=== PATIENT | female | born 1985 | race Caucasian/White ===

== ENCOUNTER 2019-08-10 11:35 | Emergency (ER) | payer OTHER ==
[2019-08-10 11:45] VITALS: BP 123/85; PULSE 91; TEMP 98; BMI 38.7
[2019-08-10] MEDS ORDERED: ALBUTEROL SO4 2.5/IPRATROPIUM 0.5 INH SOL 3 ML VIAL.NEB. NEB ONE ×2 (13:05→13:10)
[2019-08-10] MEDS ORDERED: predniSONE 20 MG TABLET (UD) PO ONE (13:05)
[2019-08-10] MEDS ORDERED: predniSONE 20 MG TABLET (UD) ONE (13:10)
--- NOTE | 2019-08-10 13:11 | PDOC ---
History of Present Illness - General Chief Complaint: Cold Symptoms Stated Complaint: COUGHING/CONGESTED Time Seen by Provider: 08/10/19 11:59 History Source: Patient Exam Limitations: No Limitations - History of Present Illness Initial Comments: 08/10/19 13:06 Patient is a 34-year-old female who presents to the ED for incessant cough for the last 4 days. She states 4 days ago she had a slight fever but has not had one since. The cough is worse at night. She denies any sputum production. She does have a history of asthma and she states her pump has not been helping. She denies any throat pain. She does admit to some ear pain. Other than asthma she denies any past medical history. Past History - Past Medical History Allergies/Adverse Reactions: Allergies Allergy/AdvReac Type Severity Reaction Status Date / Time No Known Allergies Allergy Verified 08/10/19 11:41 Home Medications: Ambulatory Orders Albuterol Sulfate Inhaler - [Ventolin Hfa Inhaler -] 1 - 2 inh PO Q4H #1 inhaler 04/28/15 Benzonatate [Tessalon Pearls -] 100 mg PO TID PRN #21 capsule 08/10/19 Multivit-Minerals/Herbal No217 [Advaclear Capsule] 1 each PO BID 08/10/19 predniSONE [Deltasone -] 60 mg PO DAILY 4 Days #12 tablet 08/10/19 Asthma: Yes Cancer: No Cardiac Disorders: No COPD: No Diabetes: No HTN: No Liver Disease: No Seizures: No Thyroid Disease: No - Immunization History Immunization Up to Date: Yes - Psycho Social/Smoking Cessation Hx Smoking History: Never smoked Have you smoked in the past 12 months: No Hx Alcohol Use: No Drug/Substance Use Hx: No Substance Use Type: None Hx Substance Use Treatment: No Review of Systems - Review of Systems Comments:: 08/10/19 13:07 - Review of Systems Able to Perform ROS?: Yes Constitutional: No: Fever, Chills, Loss of Appetite, Night Sweats, Weakness HEENTM: No: Eye Pain, Vision changes, Throat Pain, Throat Swelling, Mouth Pain, Difficulty Swallowing, + Ear Pain Respiratory: No: Shortness of Breath, Wheezing, Sputum Production, + Cough Cardiac (ROS): No: Chest Pain, Chest Tightness, Palpitations, Irregular Heart Beat, Edema ABD/GI: No: Nausea, Vomiting, Abdominal Pain, Diarrhea : No Dysuria, No Hematuria, No Frequency, No Urgency Musculoskeletal: No: Muscle Pain, Back Pain, Joint Pain, Muscle Weakness, Neck Pain Integumentary: No: Lesions, Rash Neurological: No: Headache, Numbness, Tingling, Weakness, Speech Difficulties *Physical Exam - Vital Signs Last Vital Signs Temp Pulse Resp BP Pulse Ox 98.0 F 91 H 18 123/85 100 08/10/19 11:41 08/10/19 11:41 08/10/19 11:41 08/10/19 11:41 08/10/19 11:41 - Physical Exam 08/10/19 13:08 - Physical Exam General Appearance: Nourished, Appropriately Dressed, No Distress HEENT: EOMI, Normal Voice, No Pharyngeal Erythema, No Muffled/Hoarse voice, No Tonsillar Exudate, No Tonsillar Erythema, No Nasal Congestion, No Rhinorrhea, Hearing Grossly Normal, TMs Normal, B/l TM Bulging/effusion, No TM Dullness, No TM Erythema Neck: Supple, No Lymphadenopathy (R), No Lymphadenopathy (L), No Rigidity, No Decreased range of motion Respiratory/Chest: Lungs Clear, Normal Breath Sounds. No Respiratory Distress, No Accessory Muscle Use; dry hacking cough appreciated Cardiovascular: Regular Rhythm, Regular Rate, S1, S2 Gastrointestinal/Abdominal: Normal Bowel Sounds, Soft. Non-tender, No Guarding , No Rebound, No Rigidity Musculoskeletal: Normal Inspection. No Decreased Range of Motion Extremity: Normal Capillary Refill, Normal Inspection Integumentary: Normal Color, Dry. 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 We will discharge the patient with a prescription for prednisone and Tessalon Perles. She will start the prednisone tomorrow as she was given the first dose today. She will follow-up with her primary doctor within 1 to 2 weeks for repeat evaluation. Medical Decision Making - Medical Decision Making 08/10/19 13:09 Patient is a 34-year-old female with incessant dry cough for the last 4 days and fever x 1 four days ago. -We will give DuoNeb x1 -We will give prednisone 60 mg p.o. x1 -Chest x-ray -Will reassess Discharge - Discharge Information Problems reviewed: Yes Clinical Impression/Diagnosis: Bronchitis Condition: Stable Disposition: HOME - Additional Discharge Information Prescriptions: Benzonatate [Tessalon Pearls -] 100 mg PO TID PRN #21 capsule PRN Reason: Cough predniSONE [Deltasone -] 60 mg PO DAILY 4 Days #12 tablet - Follow up/Referral Referrals: Keyla Cary MD [Primary Care Provider] - - Patient Discharge Instructions Patient Printed Discharge Instructions: DI for Acute Bronchitis Additional Instructions: Get plenty of rest and drink plenty of fluids. Take the Tessalon Perles for cough. Take the prednisone as prescribed and start tomorrow. You can use your albuterol inhaler as needed. Follow-up with your primary doctor for repeat evaluation. - Post Discharge Activity Work/Back to School Note: Back to Work
== END 2019-08-10 14:38 | disposition home or self-care (01) ==
LOC: JERFT 11:35
PROC: 3E0F7GC Introduction of Other Therapeutic Substance into Respiratory Tract, Via Natural or Artificial Opening (ICD-10-PCS; principal; 2019-08-10)
DX: J40 Bronchitis, not specified as acute or chronic (principal)
CPT/HCPCS: 71046-TC-FY; 94640; 99282-25

== ENCOUNTER 2020-05-05 01:50 | Emergency (ER) | payer OTHER ==
--- OUTSIDE RECORDS SUMMARY | 2020-05-05 02:19 | XMS ---
:1985 Author Organization [facility] Care Team Providers Name Role Phone FELICIA Flor Unavailable Unavailable ED STAFF PHYSICIAN, STAFF Unavailable Unavailable Re-disclosure Warning The records that you are about to access may contain information from federally- assisted alcohol or drug abuse programs. If such information is present, then the following federally mandated warning applies: This information has been disclosed to you from records protected by federal confidentiality rules (42 CFR part 2). The federal rules prohibit you from making any further disclosure of this information unless further disclosure is expressly permitted by the written consent of the person to whom it pertains or as otherwise permitted by 42 CFR part 2. A general authorization for the release of medical or other information is NOT sufficient for this purpose. The Federal rules restrict any use of the information to criminally investigate or prosecute any alcohol or drug abuse patient.The records that you are about to access may contain highly sensitive health information, the redisclosure of which is protected by Article 27-F of the [facility] Public Health law. If you continue you may haveaccess to information: Regarding HIV / AIDS; Provided by facilities licensed or operated by the [facility] Office of Mental Health; or Provided by the [facility] Office for People With Developmental Disabilities. If such information is present, then the following [facility] mandated warning applies: This information has been disclosed to you from confidential records which are protected by state law. State law prohibits you from making any further disclosure of this information without the specific written consent of the person to whom it pertains, or as otherwise permitted by law. Any unauthorized further disclosure in violation of state law may result in a fine or residential sentence or both. A general authorization for the release of medical or other information is NOT sufficient authorization for further disclosure. Encounters Encounter Providers Location Date Indications Data Source(s ) Emergency Attender: FELICIA Jamison 07/10/2019 [facility] [place] KAttender: 03:28:00 PM EST [facility] STAFF ED STAFF - 07/10/2019 PHYSICIANAdmitter: 08:33:00 PM EST FELICIA Flor Patient discharged. Insurance Providers Payer name Policy type Policy ID Covered Covered republican's Policy P neftali / Coverage republican ID relationship to Rooney Inf ormation type rooney SARA [id number] SP [id number] 200 HEALTH NON CAP SARA W [id number] 01 [id number] 200 SARA W [id number] 01 [id number] 200 [place] [id number] [place] [id number] HMO MVP/HHP O [id number] 01 [id number] Problems, Conditions, and Diagnoses Code Display Name Description Problem Type Effective Dates Data Source(s) R42 Dizziness and DIZZINESS AND Diagnosis 07/10/2019 [facility] giddiness GIDDINESS 03:28:00 PM EST Medical C enter R06.00 Dyspnea, DYSPNEA, Diagnosis 07/10/2019 [facility] unspecified UNSPECIFIED 03:28:00 PM EST Medical Center R05 Cough COUGH Diagnosis 07/10/2019 [facility] 03:28:00 PM EST Medical C enter Social History Code Duration Value Status Description Data Source(s ) Smoking 07/10/2019 Denies Ever completed Denies Ever Smoked [facility] 03:45:00 PM EST Smoked Medical C enter Smoking 07/10/2019 Denies Ever completed Denies Ever Smoked [facility] 03:43:00 PM EST Smoked Medical C enter Smoking 07/10/2019 Denies Ever completed Denies Ever Smoked [facility] 03:30:00 PM EST Smoked Medical C enter Vital Signs ID Date Data Source UNK Name Value Range Interpretation Code Description Data Source(s) Body temperature 36.271405 36.219586 [facility] Respiratory rate 16 /min 16 /min [facility] Oxygen saturation 98 % 98 % [facility] in Arterial blood [facility] by Pulse oximetry Heart rate 94 /min 94 /min [facility] Body height 167.096448 167.783460 cm [facility] cm [facility] Center Diastolic blood 73 mm[Hg] 73 mm[Hg] [facility] pressure [facility] Center Systolic blood 141 mm[Hg] 141 mm[Hg] [facility] pressure [facility]
[2020-05-05 02:20] VITALS: BP 138/84; PULSE 96; TEMP 98.7; BMI 40.3
--- NOTE | 2020-05-05 02:26 | PDOC ---
Attending Attestation - Resident Resident Name: Zane Rodriguez - ED Attending Attestation I have performed the following: I have examined & evaluated the patient, The case was reviewed & discussed with the resident, I agree w/resident's findings & plan - HPI HPI: 05/05/20 04:40 Pt has a broken/ rotten maxil;bruno premolar that is causing pain Pt has no fever and no chills and she went to see a dentist who gave her 500mg amoxil BID and she felt better. However now with pain. She states that the dentist wouldn't pull the tooth wthout being paid first. She is looking for a low cost or free tooth extraction. Now here for pain relief. \No other complaints - Physicial Exam PE: 05/05/20 04:42 Agree with resident exam - Medical Decision Making 05/05/20 04:42 dental pain; cavity/rotten/broken tooth 05/05/20 04:42 Pt given a bupivicaine nerve block that was effective in easing the pain. Pt will follow at a local dental clinic later today. Stable for d/c home Discharge - Discharge Information Problems reviewed: Yes Clinical Impression/Diagnosis: Toothache Broken tooth Qualifiers: Encounter type: initial encounter Condition: Good Disposition: HOME - Follow up/Referral Referrals: Keyla Cary MD [Primary Care Provider] - - Patient Discharge Instructions Patient Printed Discharge Instructions: DI for Tooth Abscess, DI for Dental Pain Additional Instructions: You were seen in the ER for a tooth ache. You received numbing medication in your gum to treat your symptoms. After receiving this medication you reported a significant reduction in your pain. When you return home you may use tylenol and motrin/advil to control your pain. You may use these medications together to increase their effectiveness. Please follow the dosing instruction on the packaging. Please follow up with a Dentist tomorrow morning to have the tooth removed. You may visit [facility] or [facility] to seek treatment for your tooth. Please return to the ER if you experience any of the following: fever, chills, nausea, vomiting, chest pain, shortness of breath, changes in vision or hearing. - Post Discharge Activity
--- NOTE | 2020-05-05 02:27 | PDOC ---
Attending Attestation - ED Attending Attestation I have performed the following: I have examined & evaluated the patient, The case was reviewed & discussed with the resident, I agree w/resident's findings & plan Discharge - Follow up/Referral Referrals: Keyla Cary MD [Primary Care Provider] - - Patient Discharge Instructions - Post Discharge Activity
[2020-05-05] MEDS ORDERED: BUPIVACAINE HCL/PF 0.5% (5 MG/ML) 30 ML VIAL IJ ONE (02:30)
[2020-05-05] MEDS ORDERED: BUPIVACAINE HCL 50 ML ONE (02:35)
--- NOTE | 2020-05-05 03:42 | PDOC ---
History of Present Illness - General Chief Complaint: Toothache Stated Complaint: TOOTHACHE Time Seen by Provider: 05/05/20 02:27 - History of Present Illness Initial Comments: 35 year old female with no significant history presenting with tooth pain of 2 days duration. Patient reports that she broke her tooth but is unsure how. She visited a dentist today who refused to treat her without insurance. She presents with 10/10 pain that radiates across her right face and into her forehead. She otherwise denies N/V/D, fever, chill, chest pain or shortness of breath. 05/05/20 03:48 Past History - Medical History Allergies/Adverse Reactions: Allergies Allergy/AdvReac Type Severity Reaction Status Date / Time No Known Allergies Allergy Verified 05/05/20 02:15 Home Medications: Ambulatory Orders Albuterol Sulfate Inhaler - [Ventolin HFA Inhaler -] 1 - 2 inh PO Q4H #1 inhaler 04/28/15 Multivit-Minerals/Herbal No217 [Advaclear Capsule] 1 each PO BID 08/10/19 Amoxicillin - [Amoxicillin 500mg Capsule -] 500 mg PO BID #14 capsule 10/17/19 Pseudoephedrine HCl [Sudafed] 30 mg PO QID #20 tablet 10/17/19 Asthma: Yes Cancer: No Cardiac Disorders: No COPD: No Diabetes: No HTN: No Liver Disease: No Seizures: No Thyroid Disease: No - Reproductive History Is Patient Now?: No - Immunization History Immunization Up to Date: Yes - Psycho-Social/Smoking History Smoking History: Never smoked Have you smoked in the past 12 months: No - Substance Abuse Hx (Audit-C & DAST Scrn) How often the patient has a drink containing alcohol: Never Score: In Men: 4 or > Positive; In Women: 3 or > Positive: 0 Screen Result (Pos requires Nsg. Audit-10AR): Negative In the last yr the pt used illegal drug/Rx for NonMed reason: No Score: Yes response is considered Positive: 0 Screen Result (Positive result requires Nsg. DAST-10): Negative *Physical Exam - Vital Signs Last Vital Signs Temp Pulse Resp BP Pulse Ox 98.7 F 96 H 18 138/84 100 05/05/20 02:09 05/05/20 02:09 05/05/20 02:09 05/05/20 02:09 05/05/20 02:09 Discharge - Discharge Information Problems reviewed: Yes Clinical Impression/Diagnosis: Toothache Condition: Good Disposition: HOME - Admission No - Follow up/Referral Referrals: Keyla Cary MD [Primary Care Provider] - - Patient Discharge Instructions Patient Printed Discharge Instructions: DI for Tooth Abscess, DI for Dental Pain Additional Instructions: You were seen in the ER for a tooth ache. You received numbing medication in your gum to treat your symptoms. After receiving this medication you reported a significant reduction in your pain. When you return home you may use tylenol and motrin/advil to control your pain. You may use these medications together to increase their effectiveness. Please follow the dosing instruction on the packaging. Please follow up with a Dentist tomorrow morning to have the tooth removed. You may visit [facility] or [facility] to seek treatment for your tooth. Please return to the ER if you experience any of the following: fever, chills, nausea, vomiting, chest pain, shortness of breath, changes in vision or hearing. - Post Discharge Activity
== END 2020-05-05 03:57 | disposition home or self-care (01) ==
LOC: JER 01:50
DX: K08.89 Other specified disorders of teeth and supporting structures (principal)
CPT/HCPCS: 99283-25

== ENCOUNTER 2020-11-06 16:44 | Emergency (ER) | payer OTHER ==
[2020-11-06 16:53] VITALS: BP 131/81; PULSE 97; TEMP 98.5; BMI 40.3
[2020-11-06 18:20] LABS: BASO % 0.5 % (0-2.0); EOS % 6.6 % (0-4.5); HEMATOCRIT 32.5 % (32.4-45.2); HEMOGLOBIN 10.7 GM/dL (10.7-15.3); LYMPH % 27.5 % (8-40); MEAN CELL VOLUME 84.9 fl (80-96); MEAN PLT VOLUME 8.5 fl (7.5-11.1); MONO % 6.1 % (3.8-10.2); NEUT % 59.3 % (42.8-82.8); PLATELET COUNT 363 K/MM3 (134-434); RBC 3.83 M/mm3 (3.60-5.2); RDW 18.8 % (11.6-15.6); WHITE BLOOD COUNT 7.4 K/mm3 (4.0-10.0)
[2020-11-06 18:32] LABS: CHLORIDE 109 mmol/L (98-107); SODIUM 140 mmol/L (136-145)
[2020-11-06 18:34] LABS: CALCIUM 9.6 mg/dL (8.5-10.1); GLUCOSE,RANDOM 83 mg/dL (74-106)
[2020-11-06 18:35] LABS: ALBUMIN 3.8 g/dl (3.4-5.0); ANION GAP 4 MMOL/L (8-16); BLOOD UREA NITROGEN 10.6 mg/dL (7-18); CO2 27 mmol/L (21-32)
[2020-11-06 18:38] LABS: CREATININE 0.9 mg/dL (0.55-1.3); SGOT/AST 12 U/L (15-37); SGPT/ALT 17 U/L (13-61)
[2020-11-06 18:39] LABS: BILIRUBIN,TOTAL 0.4 mg/dL (0.2-1); TOT PROT 8.2 g/dl (6.4-8.2)
[2020-11-06 18:40] LABS: ALK PHOS 59 U/L (45-117)
== END 2020-11-06 19:15 | disposition home or self-care (01) ==
LOC: JER 16:44
DX: R07.9 Chest pain, unspecified (principal)
CPT/HCPCS: 36415; 71046-TC-FY; 80053; 82550; 84484; 84702; 85025; 93005; 93010; 99284-25

== ENCOUNTER 2021-02-16 00:39 | Emergency (ER) | payer OTHER ==
[2021-02-16 01:02] VITALS: TEMP 98.3; BMI 42.5
[2021-02-16 02:35] LABS: PH,URINE 5.5 (5.0-8.0); URINE APPEARANCE CLEAR; URINE BILIRUBIN NEGATIVE (NEGATIVE); URINE COLOR YELLOW; URINE GLUCOSE (UA) NEGATIVE (NEGATIVE); URINE KETONE NEGATIVE (NEGATIVE); URINE LEUK ESTERASE NEGATIVE (NEGATIVE); URINE NITRITE NEGATIVE (NEGATIVE); URINE PROTEIN NEGATIVE (NEGATIVE); URINE UROBILINOGEN 0.2 mg/dL (0.2-1.0)
[2021-02-16 03:58] LABS: BASO % 0.5 % (0-2.0); EOS % 6.3 % (0-4.5); HEMATOCRIT 32.7 % (32.4-45.2); LYMPH % 21.3 % (8-40); MCH 28.5 pg (25.7-33.7); MCHC 33.6 g/dl (32.0-36.0); MEAN PLT VOLUME 8.2 fl (7.5-11.1); MONO % 4.9 % (3.8-10.2); PLATELET COUNT 327 10^3/uL (134-434); RBC 3.84 M/mm3 (3.60-5.2); RDW 14.6 % (11.6-15.6); WHITE BLOOD COUNT 9.8 K/mm3 (4.0-10.0)
[2021-02-16 04:09] LABS: BLOOD UREA NITROGEN 8.2 mg/dL (7-18)
[2021-02-16 04:10] LABS: ALBUMIN 3.4 g/dl (3.4-5.0); MAGNESIUM 2.1 mg/dL (1.8-2.4)
[2021-02-16 04:13] LABS: CREATININE 0.9 mg/dL (0.55-1.3)
[2021-02-16 04:14] LABS: BILIRUBIN,TOTAL 0.3 mg/dL (0.2-1)
[2021-02-16 05:59] VITALS: BP 118/76; PULSE 78
== END 2021-02-16 05:59 | disposition home or self-care (01) ==
LOC: JER 00:39
DX: N83.202 Unspecified ovarian cyst, left side (principal)
CPT/HCPCS: 36415; 74177-TC; 80053; 81003; 83690; 83735; 84703; 85025; 87086; 99284-25

== ENCOUNTER 2022-03-19 08:27 | Emergency (ER) | payer OTHER ==
[2022-03-19 08:33] VITALS: RESP 17; BMI 40.3
[2022-03-19] MEDS ORDERED: ALBUTEROL SO4 0.083% IH SOL 2.5 MG/3 ML VIAL.NEB. NEB ONE ×2 (10:59→11:08)
[2022-03-19] MEDS ORDERED: ACETAMINOPHEN 325 MG TABLET (FP) PO ONE (10:59)
[2022-03-19] MEDS ORDERED: ACETAMINOPHEN 325 MG TABLET (FP) ONE (11:08)
[2022-03-19 11:18] LABS: BASO % 0.6 % (0-2.0); EOS % 9.2 % (0-4.5); HEMATOCRIT 34.7 % (32.4-45.2); HEMOGLOBIN 10.9 GM/dL (10.7-15.3); LYMPH % 30.4 % (8-40); MCH 27.2 pg (25.7-33.7); MCHC 31.5 g/dl (32.0-36.0); MEAN CELL VOLUME 86.6 fl (80-96); MEAN PLT VOLUME 9.3 fl (7.5-11.1); MONO % 4.9 % (3.8-10.2); NEUT % 54.9 % (42.8-82.8); PLATELET COUNT 378 10^3/uL (134-434); RDW 15.7 % (11.6-15.6); WHITE BLOOD COUNT 6.7 K/mm3 (4.0-10.0)
[2022-03-19 11:24] LABS: INR 1.09 (0.83-1.09); PROTHROMBIN TIME (PATIENT) 12.5 SEC (9.7-13.0)
[2022-03-19 11:32] LABS: CALCIUM 9.8 mg/dL (8.5-10.1)
[2022-03-19 11:33] LABS: ALBUMIN 3.7 g/dl (3.4-5.0); BLOOD UREA NITROGEN 8.9 mg/dL (7-18)
[2022-03-19 11:36] LABS: CREATININE 0.9 mg/dL (0.55-1.3)
[2022-03-19 11:38] LABS: BILIRUBIN,TOTAL 0.2 mg/dL (0.2-1); TOT PROT 7.9 g/dl (6.4-8.2)
[2022-03-19 14:15] VITALS: BP 138/84; PULSE 86; TEMP 98
== END 2022-03-19 14:10 | disposition home or self-care (01) ==
LOC: JER 08:27
PROC: 3E0F7GC Introduction of Other Therapeutic Substance into Respiratory Tract, Via Natural or Artificial Opening (ICD-10-PCS; principal; 2022-03-19)
DX: J45.21 Mild intermittent asthma with (acute) exacerbation (principal)
CPT/HCPCS: 0241U-QW; 36415; 71046-TC-FY; 80053; 84484; 84703; 85025; 85379; 85610; 93005; 93010; 99285-25

== ENCOUNTER 2023-07-12 19:21 | Emergency (ER) | payer OTHER ==
[2023-07-12 19:31] VITALS: TEMP 98.1; BMI 37.1
[2023-07-12] MEDS ORDERED: ACETAMINOPHEN 1000 MG/100 ML BAG IVPB ONE (20:31)
[2023-07-12] MEDS ORDERED: SODIUM CHLORIDE 1,000 ML IV STA (20:31)
[2023-07-12 20:44] LABS: URINE APPEARANCE CLEAR; URINE BILIRUBIN NEGATIVE (NEGATIVE); URINE COLOR YELLOW; URINE GLUCOSE (UA) NEGATIVE (NEGATIVE); URINE KETONE TRACE (NEGATIVE); URINE LEUK ESTERASE NEGATIVE (NEGATIVE); URINE NITRITE NEGATIVE (NEGATIVE); URINE PROTEIN NEGATIVE (NEGATIVE); URINE UROBILINOGEN 0.2 mg/dL (0.2-1.0)
[2023-07-12] MEDS ORDERED: LIDOCAINE 5% TOPICAL PATCH TP ONE (20:47)
[2023-07-12] MEDS ORDERED: ACETAMINOPHEN INJECTION 100 ML IVPB ONE (20:50)
[2023-07-12 20:51] LABS: HCG,QUALITATIVE URINE Negative
[2023-07-12] MEDS ORDERED: LIDOCAINE 4% PATCH TP ONE (20:58)
[2023-07-12 21:02] LABS: BASO % 1.1 % (0-2.0); EOS % 7.4 % (0-4.5); HEMATOCRIT 36.4 % (32.4-45.2); LYMPH % 32.3 % (8-40); MCH 29.3 pg (25.7-33.7); MCHC 33.1 g/dl (32.0-36.0); MEAN CELL VOLUME 88.6 fl (80-96); MEAN PLT VOLUME 8.2 fl (7.5-11.1); MONO % 6.9 % (3.8-10.2); NEUT % 52.3 % (42.8-82.8); PLATELET COUNT 331 10^3/uL (134-434); RBC 4.11 M/mm3 (3.60-5.2); RDW 13.6 % (11.6-15.6); WHITE BLOOD COUNT 6.4 K/mm3 (4.0-10.0)
[2023-07-12 21:20] LABS: POTASSIUM 4.3 mmol/L (3.5-5.1)
[2023-07-12 21:21] LABS: CALCIUM 9.4 mg/dL (8.5-10.1)
[2023-07-12 21:22] LABS: ALBUMIN 3.8 g/dl (3.4-5.0); BLOOD UREA NITROGEN 12.1 mg/dL (7-18)
[2023-07-12 21:25] LABS: CREATININE 0.9 mg/dL (0.55-1.3)
[2023-07-12 21:27] LABS: BILIRUBIN,TOTAL 0.4 mg/dL (0.2-1); TOT PROT 7.5 g/dl (6.4-8.2)
[2023-07-12] MEDS ORDERED: LIDOCAINE PATCH REMOVAL MC ONE (22:00)
[2023-07-13 01:29] VITALS: BP 130/87; PULSE 99; RESP 19
== END 2023-07-13 01:37 | disposition home or self-care (01) ==
LOC: JER 19:21
PROC: 3E033NZ Introduction of Analgesics, Hypnotics, Sedatives into Peripheral Vein, Percutaneous Approach (ICD-10-PCS; principal; 2023-07-12)
PROC: 3E0337Z Introduction of Electrolytic and Water Balance Substance into Peripheral Vein, Percutaneous Approach (ICD-10-PCS; 2023-07-12)
DX: R10.31 Right lower quadrant pain (principal); R11.0 Nausea; M54.9 Dorsalgia, unspecified
CPT/HCPCS: 36415; 74177-TC; 80053; 81003; 84703; 85025; 87086; 99285-25

== ENCOUNTER 2023-08-24 06:42 | Emergency (ER) | payer OTHER ==
[2023-08-24 06:52] VITALS: BMI 37.3
[2023-08-24] MEDS ORDERED: SODIUM CHLORIDE 1,000 ML IV STA (08:05)
[2023-08-24] MEDS ORDERED: ACETAMINOPHEN 1000 MG/100 ML BAG IVPB ONE (08:05)
[2023-08-24] MEDS ORDERED: ACETAMINOPHEN INJECTION 100 ML IVPB ONE (09:09)
[2023-08-24] MEDS ORDERED: ONDANSETRON 4 MG/2 ML VIAL IVPUSH ONE (09:40)
[2023-08-24] MEDS ORDERED: ONDANSETRON 4 MG/2 ML VIAL ONE (09:42)
[2023-08-24 09:48] LABS: BASO % 0.3 % (0-2.0); EOS % 0.8 % (0-4.5); HEMATOCRIT 37.2 % (32.4-45.2); HEMOGLOBIN 12.2 GM/dL (10.7-15.3); LYMPH % 5.7 % (8-40); MCH 29.2 pg (25.7-33.7); MCHC 32.7 g/dl (32.0-36.0); MEAN CELL VOLUME 89.4 fl (80-96); MEAN PLT VOLUME 8.6 fl (7.5-11.1); NEUT % 86.2 % (42.8-82.8); PLATELET COUNT 297 10^3/uL (134-434); RBC 4.16 M/mm3 (3.60-5.2); RDW 13.3 % (11.6-15.6); WHITE BLOOD COUNT 7.7 K/mm3 (4.0-10.0)
[2023-08-24 10:02] LABS: POTASSIUM 4.5 mmol/L (3.5-5.1)
[2023-08-24 10:06] LABS: ALBUMIN 3.6 g/dl (3.4-5.0); BLOOD UREA NITROGEN 8.5 mg/dL (7-18)
[2023-08-24 10:07] LABS: CALCIUM 9.9 mg/dL (8.5-10.1)
[2023-08-24 10:11] LABS: BILIRUBIN,TOTAL 0.5 mg/dL (0.2-1); TOT PROT 8.1 g/dl (6.4-8.2)
[2023-08-24 10:36] LABS: PH,URINE 5.5 (5.0-8.0); URINE APPEARANCE CLEAR; URINE BILIRUBIN NEGATIVE (NEGATIVE); URINE COLOR YELLOW; URINE GLUCOSE (UA) NEGATIVE (NEGATIVE); URINE KETONE NEGATIVE (NEGATIVE); URINE LEUK ESTERASE NEGATIVE (NEGATIVE); URINE NITRITE NEGATIVE (NEGATIVE); URINE PROTEIN NEGATIVE (NEGATIVE); URINE UROBILINOGEN 0.2 mg/dL (0.2-1.0)
[2023-08-24 10:43] LABS: HCG,QUALITATIVE URINE Negative
[2023-08-24] MEDS ORDERED: IBUPROFEN 600 MG TABLET (FP) PO ONE ×2 (12:29→12:42)
[2023-08-24 14:50] VITALS: BP 135/81; PULSE 109; RESP 19; TEMP 98.8
== END 2023-08-24 14:55 | disposition home or self-care (01) ==
LOC: JER 06:42
PROC: 3E033NZ Introduction of Analgesics, Hypnotics, Sedatives into Peripheral Vein, Percutaneous Approach (ICD-10-PCS; principal; 2023-08-24)
PROC: 3E033GC Introduction of Other Therapeutic Substance into Peripheral Vein, Percutaneous Approach (ICD-10-PCS; 2023-08-24)
PROC: 3E0337Z Introduction of Electrolytic and Water Balance Substance into Peripheral Vein, Percutaneous Approach (ICD-10-PCS; 2023-08-24)
DX: R51.9 Headache, unspecified (principal); R11.0 Nausea; J10.1 Influenza due to other identified influenza virus with other respiratory manifestations; Z20.822 Contact with and (suspected) exposure to COVID-19
CPT/HCPCS: 0241U-QW; 36415; 80053; 81003; 84703; 85025; 99284-25; J0131

== ENCOUNTER 2024-05-03 15:09 | Emergency (ER) | payer OTHER ==
[2024-05-03 15:17] VITALS: BP 130/82; PULSE 102; RESP 20; TEMP 98.3; BMI 37.1
== END 2024-05-03 15:38 | disposition home or self-care (01) ==
LOC: JERFT 15:09
DX: L50.1 Idiopathic urticaria (principal)
CPT/HCPCS: 99283-25

== ENCOUNTER 2024-11-15 18:00 | Emergency (ER) | payer OTHER ==
[2024-11-15 18:18] VITALS: TEMP 99; BMI 38.7
[2024-11-15] MEDS: ASPIRIN 81 MG CHEWABLE TABLETS PO ONE (20:15)
[2024-11-15] MEDS ORDERED: ASPIRIN 81 MG CHEWABLE TABLETS ONE (20:17)
[2024-11-15 20:38] LABS: HEMATOCRIT 25.9 % (34.1-44.9); HEMOGLOBIN 7.1 g/dL (11.2-15.7); MCHC 27.4 g/dl (32.2-35.5); MEAN CELL VOLUME 72.3 fl (79.4-94.8); MEAN PLT VOLUME 10.2 fl (9.4-12.3); PLATELET COUNT 482 x10^3/uL (182-369); RDW 18.5 % (12.1-16.8)
[2024-11-15 20:47] LABS: INR 1.05 (0.83-1.09); PROTHROMBIN TIME (PATIENT) 11.6 SEC (9.7-13.0)
[2024-11-15 20:49] LABS: ACTIVATED PTT 28.4 SECONDS (25.2-36.5)
[2024-11-15 20:55] LABS: POTASSIUM 4.1 mmol/L (3.5-5.1)
[2024-11-15 20:59] LABS: ALBUMIN 3.5 g/dl (3.4-5.0); BLOOD UREA NITROGEN 10.9 mg/dL (7-18)
[2024-11-15 21:02] LABS: CREATININE 0.9 mg/dL (0.55-1.3)
[2024-11-15 21:03] LABS: BILIRUBIN,TOTAL 0.5 mg/dL (0.2-1)
[2024-11-15] MEDS: FERROUS SO4 325 MG TABLET (FP) PO ONE (21:43)
[2024-11-15] MEDS ORDERED: FERROUS SO4 325 MG TABLET (FP) ONE (21:48)
[2024-11-15 21:49] LABS: HIV INTERPRETATION NEGATIVE (NEGATIVE)
[2024-11-15 21:50] LABS: HCV DIAGNOSTIC IN-HOUSE W/RFLX NON-REACTIVE (NONREACTIVE)
[2024-11-15 22:47] VITALS: BP 128/85; PULSE 89; RESP 18
[2024-11-15] MEDS ORDERED: FAMOTIDINE 20 MG TABLET PO ONE (23:17)
== END 2024-11-15 23:25 | disposition home or self-care (01) ==
LOC: JER 18:00
DX: D50.9 Iron deficiency anemia, unspecified (principal); R07.9 Chest pain, unspecified
CPT/HCPCS: 0241U-QW; 36415; 71046-TC-FY; 80053; 82550; 82728; 83735; 84484; 84703; 85027; 85610; 85730; 86803; 87389; 93005; 93010; 99285-25